=== PATIENT | female | born 2000 | race Caucasian/White ===

== ENCOUNTER 2020-01-25 20:40 | Emergency (ER) | payer OTHER ==
[~2020-01-25] VITALS: Ht 162.6 cm; Wt 68.2 kg
[2020-01-25 20:55] VITALS: TEMP 98.8
[2020-01-25] MEDS ORDERED: ABILIFY5 MG PO (21:02)
[2020-01-25] MEDS ORDERED: LEXAPRO20 MG PO (21:03)
[2020-01-25] MEDS ORDERED: SPRINTEC 35 MCG1 TAB PO (21:03)
[2020-01-25] MEDS ORDERED: RITALIN10 MG PO (21:05)
[2020-01-25 22:37] VITALS: BP 118/75; PULSE 68
== END 2020-01-25 22:50 | disposition home or self-care (01) ==
LOC: COL.ER 20:40
DX: U07.1 COVID-19 (principal); F90.9 Attention-deficit hyperactivity disorder, unspecified type; F41.9 Anxiety disorder, unspecified; F32.9 Major depressive disorder, single episode, unspecified; Z88.0 Allergy status to penicillin

== ENCOUNTER 2020-06-06 09:48 | Emergency (ER) | payer OTHER ==
[~2020-06-06] VITALS: Ht 162.6 cm; Wt 72.7 kg
[~2020-06-06 09:48] MED LIST: ABILIFY5 MG PO; LEXAPRO20 MG PO; RITALIN10 MG PO; SPRINTEC 35 MCG1 TAB PO
[2020-06-06 09:54] VITALS: TEMP 97.7
[2020-06-06] MEDS ORDERED: MILI 0.25-0.031 EACH PO (10:56)
[2020-06-06] MEDS ORDERED: ATARAX 25MG25 MG/TAB PO (10:58)
[2020-06-06 11:38] LABS: BASO # 0.1 (0.0-0.2); EOS # 0.1 (0.0-0.7); EOS % 1.5 % (0-4.0); GRAN # 3.2 (1.4-6.5); GRAN % 52.9 % (42.2-75.2); HEMATOCRIT 44.2 % (37.0-47.0); HEMOGLOBIN 15.2 g/dl (12.5-16.0); LYMPH # 2.3 (1.2-3.4); MEAN CELL VOLUME 91 fl (80.0-100.0); MEAN CORPUSCULAR HEMOGLOBIN 31 pg (27.0-31.0); MEAN CORPUSCULAR HGB CONC 34 g/dl (33.0-37.0); MONO # 0.5 (0.1-0.6); MONO % 7.4 % (1.7-9.3); PLATELET COUNT 358 K/mm3 (130-400); RED BLOOD COUNT 4.85 M/mm3 (4.10-5.30); REDCELL DISTRIBUTION WIDTH-CV 11.6 % (11.5-14.5)
[2020-06-06 11:52] LABS: ALANINE AMINOTRANSFERASE 20 U/L (4-34); ALBUMIN 4.8 gm/dL (3.5-5.0); ALKALINE PHOSPHATASE 71 U/L (50-136); ANION GAP 10 mmol/L (7-16); AST,SGOT 30 U/L (15-37); BILIRUBIN,TOTAL 0.5 mg/dL (0.0-1.0); BLOOD UREA NITROGEN 11 mg/dL (7-17); CALCIUM 9.7 mg/dL (8.4-10.2); CARBON DIOXIDE 24 mmol/L (22-30); CHLORIDE 105 mmol/L (98-107); CREATININE, serum 0.76 (0.52-1.25); GLUCOSE 93 mg/dL (74-106); POTASSIUM 3.9 mmol/L (3.4-5.0); SODIUM 139 mmol/L (137-145)
[2020-06-06 11:53] LABS: ACETAMINOPHEN < 10 ug/mL (10-30); ALCOHOL(ethanol),MEDICAL < 10 mg/dL; SALICYLATE < 1.0 mg/dL
[2020-06-06 12:27] LABS: TRICYCLIC ANTIDEPRESS URINE NEGATIVE
[2020-06-06 15:24] VITALS: BP 131/73; PULSE 92
== END 2020-06-06 14:37 | disposition home or self-care (01) ==
LOC: COL.ER 09:48
PROVIDERS: Emergency Medicine
DX: F41.0 Panic disorder [episodic paroxysmal anxiety] (principal); F32.9 Major depressive disorder, single episode, unspecified; F90.9 Attention-deficit hyperactivity disorder, unspecified type; Z88.0 Allergy status to penicillin

== ENCOUNTER 2023-01-09 20:51 | Emergency (ER) | payer BC ==
[~2023-01-09] VITALS: Ht 162.6 cm; Wt 54.5 kg
[~2023-01-09 20:51] MED LIST changes: +ATARAX 25MG25 MG/TAB PO; +MILI 0.25-0.031 EACH PO
[2023-01-09 21:10] VITALS: TEMP 98.5
[2023-01-09 23:21] LABS: BASO # 0.1 K/mm3 (0.0-0.2); BASO % 0.5 % (0.0-2.0); EOS # 0.3 K/mm3 (0.0-0.7); EOS % 2.5 % (0.0-4.0); GRAN # 7.5 K/mm3 (1.4-6.5); GRAN % 70.6 % (42.2-75.2); HEMATOCRIT 38.5 % (37.0-47.0); HEMOGLOBIN 13.3 g/dl (12.5-16.0); LYMPH # 1.9 K/mm3 (1.2-3.4); LYMPH % 18.2 % (20.0-51.0); MEAN CELL VOLUME 97 fl (80.0-100.0); MEAN CORPUSCULAR HEMOGLOBIN 34 pg (27-31); MEAN CORPUSCULAR HGB CONC 35 g/dl (33.0-37.0); MEAN PLATELET VOLUME 9.3 fl (7.4-10.4); MONO # 0.9 K/mm3 (0.1-0.6); PLATELET COUNT 247 K/mm3 (130-400); RED BLOOD COUNT 3.97 M/mm3 (4.10-5.30); REDCELL DISTRIBUTION WIDTH-CV 11.9 % (11.5-14.5)
[2023-01-10 00:55] VITALS: BP 118/63; PULSE 80
[2023-01-10] MEDS ORDERED: WELLBUTRIN XL150 MG PO (17:47)
[2023-01-10] MEDS ORDERED: LAMICTAL200 MG PO (17:49)
[2023-01-10] MEDS ORDERED: PRISTIQ 50 MG T50 MG PO (17:50)
[2023-01-10] MEDS ORDERED: DOXYCYCLINE HY100 MG PO (17:51)
[2023-01-10] MEDS ORDERED: FLAGYL500 MG PO (17:53)
[2023-01-10] MEDS ORDERED: TYLENOL 500MG500 MG PO (18:08)
[2023-01-10] MEDS ORDERED: ADDERALL10 MG PO (18:09)
[2023-01-11] MEDS ORDERED: ALDACTONE50 MG PO (09:26)
[2023-01-11] MEDS ORDERED: NURTEC ODT75 MG PO (09:27)
[2023-01-11] MEDS ORDERED: COMPLETE MULTI1 TAB PO (09:27)
== END 2023-01-10 00:40 | disposition home or self-care (01) ==
LOC: COL.ER 20:51
PROVIDERS: Emergency Medicine
DX: S61.032A Puncture wound without foreign body of left thumb without damage to nail, initial encounter (principal); I89.1 Lymphangitis; Z29.14 Encounter for prophylactic rabies immune globulin; W55.01XA Bitten by cat, initial encounter
CPT/HCPCS: J0737

== ENCOUNTER 2023-01-10 17:18 | Inpatient (IN) | payer BC ==
[~2023-01-10] VITALS: Ht 162.6 cm; Wt 56.0 kg
[2023-01-10] MEDS ORDERED: WELLBUTRIN XL150 MG PO (17:47)
[2023-01-10] MEDS ORDERED: LAMICTAL200 MG PO (17:49)
[2023-01-10] MEDS ORDERED: PRISTIQ 50 MG T50 MG PO (17:50)
[2023-01-10] MEDS ORDERED: DOXYCYCLINE HY100 MG PO (17:51)
[2023-01-10] MEDS ORDERED: FLAGYL500 MG PO (17:53)
[2023-01-10 17:59] VITALS: BP 115/62; PULSE 82; TEMP 98.7
[2023-01-10 18:01] VITALS: BP_SYST 115
[2023-01-10] MEDS ORDERED: TYLENOL 500MG500 MG PO (18:08)
[2023-01-10] MEDS ORDERED: ADDERALL10 MG PO (18:09)
[2023-01-10 19:14] VITALS: BP 121/76; PULSE 77; TEMP 98.1
[2023-01-10 19:22] LABS: BASO # 0.1 K/mm3 (0.0-0.2); BASO % 0.5 % (0.0-2.0); EOS # 0.4 K/mm3 (0.0-0.7); EOS % 3.4 % (0.0-4.0); GRAN # 7.3 K/mm3 (1.4-6.5); GRAN % 69.2 % (42.2-75.2); HEMOGLOBIN 12.4 g/dl (12.5-16.0); LYMPH # 1.9 K/mm3 (1.2-3.4); LYMPH % 18.5 % (20.0-51.0); MEAN CELL VOLUME 99 fl (80.0-100.0); MEAN CORPUSCULAR HEMOGLOBIN 34 pg (27-31); MEAN CORPUSCULAR HGB CONC 34 g/dl (33.0-37.0); MEAN PLATELET VOLUME 9.4 fl (7.4-10.4); MONO # 0.9 K/mm3 (0.1-0.6); MONO % 8.1 % (1.7-9.3); PLATELET COUNT 246 K/mm3 (130-400); RED BLOOD COUNT 3.68 M/mm3 (4.10-5.30); REDCELL DISTRIBUTION WIDTH-CV 11.9 % (11.5-14.5)
[2023-01-10 19:26] LABS: HEMATOCRIT 36.3 % (37.0-47.0)
[2023-01-10 19:37] LABS: C-REACTIVE PROTEIN 3.06 mg/dL (0.00-0.50); CALCIUM 9.1 mg/dL (8.4-10.2); CREATININE, serum 0.83 mg/dL (0.57-1.11); MAGNESIUM 1.9 mg/dL (1.6-2.6); POTASSIUM 3.8 mmol/L (3.5-4.5)
--- NOTE | 2023-01-10 21:00 | NUR ---
Patient sitting in bed. Denies any pain at this time. Assessment complete. IV flushes easily with no complictions at this time. Reddened area on left arm outline from admission and has not spread. Denies any other needs at this time. Call light and personal items in reach. Bed in low position.
[2023-01-10 21:36] VITALS: BP_SYST 121
[2023-01-10 22:55] VITALS: BP 122/80; PULSE 84; TEMP 98
[2023-01-11] VITALS (13 sets, daily range): BP systolic 95–126; BP diastolic 48–78; PULSE 67–90; TEMP 97.8–98.5
--- NOTE | 2023-01-11 06:20 | NUR ---
Patient resting in bed at this time. Denies any pain. Denies any needs at this time. Call light and personal items in reach. Bed in low position
[2023-01-11 09:06] LABS: HEMATOCRIT 39.7 % (37.0-47.0); HEMOGLOBIN 13.3 g/dl (12.5-16.0); MEAN CELL VOLUME 99 fl (80.0-100.0); MEAN CORPUSCULAR HEMOGLOBIN 33 pg (27-31); MEAN CORPUSCULAR HGB CONC 34 g/dl (33.0-37.0); MEAN PLATELET VOLUME 9.2 fl (7.4-10.4); PLATELET COUNT 246 K/mm3 (130-400); RED BLOOD COUNT 4.03 M/mm3 (4.10-5.30); REDCELL DISTRIBUTION WIDTH-CV 11.9 % (11.5-14.5)
[2023-01-11] MEDS ORDERED: ALDACTONE50 MG PO (09:26)
[2023-01-11] MEDS ORDERED: NURTEC ODT75 MG PO (09:27)
[2023-01-11] MEDS ORDERED: COMPLETE MULTI1 TAB PO (09:27)
--- NOTE | 2023-01-11 11:11 | NUR ---
Production Machine Operator met with patient after rounds to discuss discharge planning. 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 Patient utilizes [facility] for primary care, which is located on [facility]. Patient obtains medications from [facility] and does not use any DME. Patient is independent with ADLS and plans to return to her home at time of discharge. Patient does not have DPOA-HC and her next of kin is her father, Memo (ph#[phone]). Discharge Plan: Home
--- NOTE | 2023-01-11 19:43 | NUR ---
REPORT RECIEVED FROM TITUS ALFRED. PT SITTING IN ROOM AND WORKING ON HOMEWORK. PT AMBULATING IND. PT DENIES PAIN. CALL LIGHT IN PLACE. ALL NEEDS MET AT THIS TIME.
--- NOTE | 2023-01-11 20:58 | NUR ---
SHIFT ASSESSMENT COMPLETE, SEE DOCUMENTATION. PT DENIES PAIN. CALL LIGHT IN PLACE. ALL NEEDS MET AT THIS TIME.
--- NOTE | 2023-01-11 22:30 | NUR ---
PT REPORTED A SPOT ON HER LEFT FOREARM THAT SHE STATES IS NEW TO THE RASH. IT DID NOT SPREAD TO OUTSIDE THE PREVIOUSLY DRAWN SHARPIE LINES. RASH NOTED. CALL LIGHT IN PLACE. ALL NEEDS MET AT THIS TIME.
[2023-01-12 01:29] VITALS: BP_SYST 98
[2023-01-12 03:19] VITALS: BP 103/59; PULSE 65; TEMP 97.9
[2023-01-12 04:07] VITALS: BP_SYST 103
[2023-01-12 07:39] VITALS: BP 101/53; PULSE 73; TEMP 98.1
[2023-01-12] MEDS ORDERED: AMOXICILLIN 8751 TAB PO (08:32)
[2023-01-12 09:00] VITALS: BP_SYST 101
--- NOTE | 2023-01-12 09:00 | NUR ---
PT AMBULATING IN ROOM UPON ENTERING, GAIT STEADY. ASSESSMENT DONE, PT DENIES PAIN AT THIS TIME. ERYTHEMA AND EDEMA NOTED TO LEFT HAND, 2 PUNCTURE SILVER FROM CAT BITE NOTED TO LEFT HAND. PT DENIES NEEDS AT THIS TIME.
[2023-01-12 11:06] VITALS: BP 131/81; PULSE 81; TEMP 98.1
--- NOTE | 2023-01-12 12:10 | NUR ---
PT DRESSED IN PERSONAL CLOTHES AND IV DISCONTINUED. PT GIVEN DISCHARGE INSTRUCIONS AND VERBALIZED UNDERSTANDING. PT DENIES NEEDS AT THIS TIME AND AMBULATED TO PERSONAL VEHICLE BY STAFF
[2023-01-12] MEDS ORDERED: NYSTATIN OR100 MU/ML PO (12:15)
== END 2023-01-12 12:10 | disposition home or self-care (01) | DRG 603 ==
LOC: MEDICAL 17:18
PROVIDERS: Internal Medicine; ADMIT Internal Medicine
DX: L03.114 Cellulitis of left upper limb (principal); B37.0 Candidal stomatitis; W55.01XA Bitten by cat, initial encounter; Z79.899 Other long term (current) drug therapy; Z88.0 Allergy status to penicillin; Y93.89 Activity, other specified; Y92.89 Other specified places as the place of occurrence of the external cause
CPT/HCPCS: J0295